=== PATIENT | male | born 1975 ===

== ENCOUNTER 2018-02-19 12:37 | Emergency (ER) | payer OTHER ==
[~2018-02-19] VITALS: Ht 182.9 cm; Wt 124.7 kg
== END 2018-02-19 15:56 | disposition home or self-care (01) ==
LOC: ER 12:37
DX: S80.01XA Contusion of right knee, initial encounter (principal); W22.8XXA Striking against or struck by other objects, initial encounter; Y93.89 Activity, other specified; Y92.89 Other specified places as the place of occurrence of the external cause; Y99.8 Other external cause status